=== PATIENT | male | born 1940 | race Two or more races ===

== ENCOUNTER 2018-09-30 11:54 | Inpatient (IN) | payer OTHER ==
[~2018-09-30] VITALS: Ht 165.1 cm; Wt 72.6 kg
[~2018-09-30 11:54] MED LIST: NABUMETONE500 MG PO
--- NOTE | 2018-09-30 12:35 | NUR ---
PTE RECIBIDO EN AMBULANCIA INCONCIENTE EN COMPANIA DE CUIDADOR DE HOGAR QUIEN REFIERE PTE LUEGO DE COMER COMENZO CON MOVIEMIENTOS INVOLUNTARIOS,CON ESPUMA EN LA BOCA.PTE CON NON-REABRETHING,PRESENTA RESPIRACIONES ABDOMINALES.PTE CANAIZADO EN BRAZO RT POR PARAMEDICOS,PATENTE Y BLACK DE EDEMA CON .9NSS BAJANDO SIN DIFICULTAD.SE TERENCE S/V Y SE PRESENTA EDE A DRA ADHIKARI.SE UBICA EN AREA DE CRITICO.
--- NOTE | 2018-09-30 12:47 | NUR ---
SE RECIBE PTE EN VIRAJ EN COMPANIA DE PARAMEDICO, SE UBICA PTE EN CAMA CON BARANDAS ELEVADA, SE CONECTA A MONITOR CARDIACO Y OXYMETRIA DE PULSO PTE INCONCIENTE AL MOMENTO CON DIFICULTAD AL RESPIRAR, SE ORIENTA AL FAMILIAR SOBRE EL TRATAMIENTO ORDENADO POR LA DRA ADHIKARI SE REALIZAN MUESTRAS DE LABORATORIO Y SE ADMINISTRAN MEDICAMENTO JULIO ORDENADO, SE NOTIFICA TERAPIA RESPIRATORIOA, SE REALIZAN ABG Y MONICO ADHIKARI ORDENA BIPAP. FAMILIR FIRMA DNR. PTE SE MANTIENE EN OBSERVACION Y BAJO TRATAMIENTO.
--- NOTE | 2018-09-30 15:47 | NUR ---
SE RECIBE DE TURNO ANTERIOR. PACIENTE MASCULINO. NO VERBALIZA. PRESENTA RESPUESTAS AL LLAMADO Y ESTIMULOS DE DOLOR. CABECERA A 30 GRADOS. CONECTADO A MONITOR CARDIACO Y OXIMETRIA CON ALARMAS AUDIBLES. PIEL TIBIA AL TACTO. BUEN PATRON RESPIRATORIO, ASISTIDO RESPIRATORIAMENTE POR BIPAP CON PARAMETROS: IPAP (14), EPAP (16), FO2 (50%), RR (20) SATURANDO 100% POR OXIMETRIA MANUAL. SONDA URINARIA A GRAVEDAD PRESENTANDO ORINA AMARILLO HILDA. SE MANTIENE BAJO OBSERVACION POR CAMBIOS. PACIENTE EN ESPERA DE RE-EVALUACION MEDICA.
== END 2018-10-11 12:54 | DRG 56 ==
LOC: ER 11:54 → ICU 21:43 → ICU-2 21:43 → ICU 10-01 03:57 → MEDJ 10-07 13:40
PROVIDERS: ADMIT Internal Medicine
PROC: 0BH17EZ Insertion of Endotracheal Airway into Trachea, Via Natural or Artificial Opening (ICD-10-PCS; principal; 2018-09-30)
PROC: 5A1955Z Respiratory Ventilation, Greater than 96 Consecutive Hours (ICD-10-PCS; 2018-09-30)
PROC: 4A033R1 Measurement of Arterial Saturation, Peripheral, Percutaneous Approach (ICD-10-PCS; 2018-09-30)
PROC: 3E0F7GC Introduction of Other Therapeutic Substance into Respiratory Tract, Via Natural or Artificial Opening (ICD-10-PCS; 2018-09-30)
PROC: BW28ZZZ Computerized Tomography (CT Scan) of Head (ICD-10-PCS; 2018-09-30)
PROC: 02HV33Z Insertion of Infusion Device into Superior Vena Cava, Percutaneous Approach (ICD-10-PCS; 2018-10-04)
PROC: 4A12X4Z Monitoring of Cardiac Electrical Activity, External Approach (ICD-10-PCS; 2018-10-05)
DX: I69.851 Hemiplegia and hemiparesis following other cerebrovascular disease affecting right dominant side (principal); J69.0 Pneumonitis due to inhalation of food and vomit; R65.21 Severe sepsis with septic shock; J96.02 Acute respiratory failure with hypercapnia; Z74.01 Bed confinement status; Z66 Do not resuscitate

== ENCOUNTER 2019-03-10 09:59 | Inpatient (IN) | payer OTHER ==
[~2019-03-10] VITALS: Ht 182.9 cm; Wt 5.0 kg
--- NOTE | 2019-03-10 10:27 | NUR ---
PTE REFIERE DIFICULTAD RESPIRATORIA.
[2019-03-10] MEDS ORDERED: KEPPRA500 MG PO (10:28)
--- NOTE | 2019-03-10 12:18 | NUR ---
MS MALDDONADO COLECTA MUESTRAS DE ARIANE Y CANALIZA VENA. TERAPIA RESPIRATORIA NOTIFICADA A MR ALTAMIRANO. RADIOGRAFIA REALIZADA. SE ADMINISTRA OXIGENO POR CANULA NASAL A 3 LT.
--- NOTE | 2019-03-10 14:20 | NUR ---
PACIENTE ALERTA Y ORIENTADO EN PERSONA Y LUGAR. SE ORIENTA A PACIENTE Y FAMILIARES SOBRE TX A RECIBIR Y REFIERE ENTENDER. SE ADMINISTRA JULIO ORDEN MEDICA. SE REALIZO EKG Y SE PRESENTO A KOFFI. MONET. SE MANTIENE BAJO OBSERVACION POR CAMBIOS SIGNIFICATIVOS.
--- NOTE | 2019-03-10 15:04 | NUR ---
SE RECIBE PTE ALERTA EL CUAL SE ENCUENTRA EN CAMA, CONECTADO A MONITOR CARDIACO Y OXIMETRIA DE PULSO. PTE PRESENTA AREA DE VENOPUNCION PATENTE Y BLACK DE EDEMA PTE SE OBSERVA CON V/M 50% EN ESPERA DE CONSULTA CON DR. Felisha KEVIN.
--- NOTE | 2019-03-10 17:12 | NUR ---
SE RECIBE PACIENTE ALERTA Y ORIENTADA DEL AREA DE OBSERVACION, PACIENTE CON VENOPUCION PATENTE BLACK DE EDEMA Y ERRITEMA EN ANTEBRAZO BISMARK CON .9 NSS BAJANDO A 125 ML/HR. PACIENTE CON V/M AL 50%. CONSONDA URINARIA DRENANDO ORINA AMARILLO HILDA. SE CONECTA A MONITOR CARDIACO Y OXIMETRIA DE PULSO. SE TERENCE SIGNOS VITALES ESTABLES AL MOEMNTO. PACIENTE RECIBE VISITA DEL DR. EZ KEVIN.
--- NOTE | 2019-03-10 17:55 | NUR ---
PACIENTE ALERTA Y ORIENTADO REFIERE TENER DOLOR ABDOMINAL, SE LLAMA KOFFI. EZ KEVIN PARA NOTIFICAR, ORDENA QUE SE COLOQUE DEMEROL Q 6 HRS Y PEPCID 20 MG STAT.
== END 2019-03-11 23:29 | disposition expired | DRG 177 ==
LOC: ER 09:59 → ICU-2 18:33
PROVIDERS: ADMIT Internal Medicine
PROC: 4A033R1 Measurement of Arterial Saturation, Peripheral, Percutaneous Approach (ICD-10-PCS; principal; 2019-03-10)
PROC: 3E0F7GC Introduction of Other Therapeutic Substance into Respiratory Tract, Via Natural or Artificial Opening (ICD-10-PCS; 2019-03-10)
PROC: BW25ZZZ Computerized Tomography (CT Scan) of Chest, Abdomen and Pelvis (ICD-10-PCS; 2019-03-10)
PROC: 0DH673Z Insertion of Infusion Device into Stomach, Via Natural or Artificial Opening (ICD-10-PCS; 2019-03-10)
PROC: B246ZZZ Ultrasonography of Right and Left Heart (ICD-10-PCS; 2019-03-11)
DX: J69.0 Pneumonitis due to inhalation of food and vomit (principal); B37.1 Pulmonary candidiasis; R65.21 Severe sepsis with septic shock; J96.02 Acute respiratory failure with hypercapnia; J96.01 Acute respiratory failure with hypoxia; I21.4 Non-ST elevation (NSTEMI) myocardial infarction; I69.851 Hemiplegia and hemiparesis following other cerebrovascular disease affecting right dominant side; G40.89 Other seizures; J15.8 Pneumonia due to other specified bacteria; Z74.01 Bed confinement status; Z86.718 Personal history of other venous thrombosis and embolism; Z66 Do not resuscitate; I10 Essential (primary) hypertension; R13.19 Other dysphagia; R57.0 Cardiogenic shock